=== PATIENT | female | born 1985 | race Caucasian/White ===

== ENCOUNTER 2020-08-19 12:37 | Emergency (ER) | payer SELFPAY ==
--- NOTE | 2020-08-19 13:00 | ER Document Report ---
HPI - HPI Time Seen by Provider: 08/19/20 12:52 Pain Level: 3 Notes: 35 old female who is a type II diabetic presents to the emergency room today for complaints of right shoulder pain status post fall on 08/05/2020. Reports she is unable to fully lift her arm, denies any numbness or tingling down her upper extremities. Has been taking ibuprofen and and Aleve without full relief. Denies any other area of injury. [id number]. Patient states she is unsure of her last menstrual cycle because she does have an intact IUD - MUSCULOSKELETAL Musculoskeletal: REPORTS: Extremity pain Past Medical History - General Information source: Patient - Social History Smoking Status: Current Every Day Smoker Frequency of alcohol use: Social Family History: Reviewed & Not Pertinent Vertical Provider Document - CONSTITUTIONAL Agree With Documented VS: Yes Exam Limitations: No Limitations General Appearance: WD/WN Notes: MEDICATIONS: I agree with the patient medications as charted by the RN. ALLERGIES: I agree with the allergies as charted by the RN. PAST MEDICAL HISTORY/PAST SURGICAL HISTORY: Reviewed and agree as charted by RN. SOCIAL HISTORY: Reviewed and agree as charted by RN. FAMILY HISTORY: No significant familial comorbid conditions directly related to patient complaint EXAM: Reviewed vital signs as charted by RN. PHYSICAL EXAMINATION: reviewed vital signs by RN GENERAL: Well-appearing, well-nourished and in no acute distress. HEAD: Atraumatic, normocephalic. EYES: Pupils equal round and reactive to light, extraocular movements intact, conjunctiva are normal. ENT: Nares patent, oropharynx clear without exudates. Moist mucous membranes. NECK: Normal range of motion, supple without lymphadenopathy LUNGS: Breath sounds clear to auscultation bilaterally and equal. No wheezes rales or rhonchi. HEART: Regular rate and rhythm without murmurs ABDOMEN: Soft, nontender, nondistended abdomen. No guarding, no rebound. No masses appreciated. Female : deferred Musculoskeletal: Normal range of motion, no pitting or edema. No cyanosis. Right shoulder pain with abduction and flexion. no pain with supination, pronation, extension. 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 PROM in shoulder, but not with AROM DTR +2 in BUE equally. negative drop arm, neer sign, mclain test bilaterally. positive impingement sign all on right . No vascular compromise. Neck with full APROM, no cervical spinal tenderness. No tenderness over clavicles or step off noted bilaterally. Strength 5 out of 5 in bilateral upper extremities equally. APROM of elbows bilaterally. NEUROLOGICAL: Cranial nerves grossly intact. Normal speech, normal gait. Normal sensory, motor exams PSYCH: Normal mood, normal affect. SKIN: Warm, Dry, normal turgor, no rashes or lesions noted. Course - Re-evaluation Re-evalutation: 08/19/20 13:23 Afebrile, vital stable no distress. Nurses notes reviewed. X-ray of right shoulder shows Patient placed in a sling, advised to take her arm out of the sling few times a day to prevent contracture. Advised to take naproxen as directed and can take Tylenol as well with the naproxen but advised to not take any ibuprofen or any Advil while taking naproxen. Advised to apply heat 20 minutes on 20 minutes off several times. - Vital Signs Vital signs: Temp Pulse Resp BP Pulse Ox 98.3 F 90 14 156/95 H 98 08/19/20 12:45 08/19/20 12:45 08/19/20 12:45 08/19/20 12:45 08/19/20 12:45 Discharge - Discharge Instructions: Exercise Program for the Shoulder ([facility]), Shoulder Injury ([facility]), Sling to be Used ([facility]), Temporary Sling ([facility]) Forms: Return to Work Referrals: JEREMY RANDOLPH MD [ACTIVE STAFF] - Follow up as needed FAREED WATKINS MD [ACTIVE STAFF] - Follow up as needed
--- NOTE | 2020-08-19 13:29 | RADIOLOGY REPORT (SQ) ---
EXAM DESCRIPTION: SHOULDER RIGHT 2 OR MORE VIEWS IMAGES COMPLETED DATE/TIME: 08/19/2020 1:19 pm REASON FOR STUDY: right shoulder pain s/p fall on 08/05/20 COMPARISON: None. NUMBER OF VIEWS: Three views. TECHNIQUE: Internal rotation, external rotation, and Y view images acquired of the right shoulder. LIMITATIONS: None. FINDINGS: MINERALIZATION: Normal. BONES: Cannot exclude an nondisplaced fracture of the greater tuberosity. JOINTS: No dislocation. VISUALIZED LUNGS AND RIBS: No pneumothorax. No rib fracture. SOFT TISSUES: No radiopaque foreign body. OTHER: No other significant finding. IMPRESSION: Cannot exclude a nondisplaced fracture of the greater tuberosity. TECHNICAL DOCUMENTATION: JOB ID: [id number] 2010 [employer]- All Rights Reserved Reading location - IP/workstation name: [email or web address]
--- NOTE | 2020-08-19 14:25 | ER Document Report ---
ED Medical Screen (RME) - General Chief Complaint: Shoulder Pain Stated Complaint: SHOULDER PAIN Time Seen by Provider: 08/19/20 12:52 Primary Care Provider: JEREMY RANDOLPH MD [ACTIVE STAFF] - Follow up as needed FAREED WATKINS MD [ACTIVE STAFF] - Follow up as needed - [facility] Notes: 08/19/20 14:22 35 old female who is a type II diabetic presents to the emergency room today for complaints of right shoulder pain status post fall on 08/05/2020. Reports she is unable to fully lift her arm, denies any numbness or tingling down her upper extremities. Has been taking ibuprofen and and Aleve without full relief. Denies any other area of injury. [id number]-[id number]. Denies any prior injury to her shoulder. patient states she does have an IUD I have greeted and performed a rapid initial assessment of this patient. A comprehensive ED assessment and evaluation of the patient, analysis of test results and completion of the medical decision making process will be conducted by additional ED providers. PHYSICAL EXAMINATION: GENERAL: Well-appearing, well-nourished and in no acute distress. HEAD: Atraumatic, normocephalic. CV: s1, s2 regular LUNGS: No respiratory distress Musculoskeletal: Normal range of motion. right shoulder pain with abduction and forward flexion. Able to lift right arm to 30 degrees with active range of motion, able to raise right arm to 45 degrees with passive range of motion for right shoulder. 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 APROM in shoulder. Neck with full APROM, no cervical spinal tenderness. No tenderness over clavicles or step off noted bilaterally. Strength 5 out of 5 in bilateral upper extremities equally. NEUROLOGICAL: Normal speech, normal gait. SKIN: Warm, Dry, normal turgor, no rashes or lesions noted. The patient was evaluated during a global COVID-19 pandemic and that diagnosis was suspected/considered upon their initial presentation. Their evaluation, treatment and testing was consistent with current guidelines for patients who present with complaints or symptoms and may be related to COVID-19. - Related Data Allergies/Adverse Reactions: No Known Allergies Allergy (Verified 08/19/20 12:51) Past Medical History - Social History Frequency of alcohol use: Social Physical Exam - Vital signs Vitals: Temp Pulse Resp BP Pulse Ox 98.3 F 90 14 156/95 H 98 08/19/20 12:45 08/19/20 12:45 08/19/20 12:45 08/19/20 12:45 08/19/20 12:45 Course - Vital Signs Vital signs: Temp Pulse Resp BP Pulse Ox 98.3 F 90 14 156/95 H 98 08/19/20 12:45 08/19/20 12:45 08/19/20 12:45 08/19/20 12:45 08/19/20 12:45 Doctor's Discharge - Discharge Instructions: Exercise Program for the Shoulder ([facility]), Shoulder Injury ([facility]), Sling to be Used ([facility]), Temporary Sling ([facility]) Forms: Return to Work Referrals: JEREMY RANDOLPH MD [ACTIVE STAFF] - Follow up as needed FAREED WATKINS MD [ACTIVE STAFF] - Follow up as needed
--- NOTE | 2020-08-19 14:46 | RADIOLOGY REPORT (SQ) ---
EXAM DESCRIPTION: CT RT UPPER EXTREMITY WITHOUT IMAGES COMPLETED DATE/TIME: 08/19/2020 2:26 pm REASON FOR STUDY: possible fx of COMPARISON: Radiographs performed 08/19/2020 TECHNIQUE: Axial acquisition was performed through the right shoulder. Coronal sagittal reformats a re provided. LIMITATIONS: None. FINDINGS: Suspicious findings on comparison radiographs are confirmed to be on the basis of a nondis placed comminuted fracture of the greater tubercle. Osseous mineralization and alignment is otherwis e normal. The soft tissues are normal for modality/technique. No soft tissue mass or fluid collecti on. The visualized right lung appears grossly clear. No rib fractures or pneumothorax. The remaini ng bony and soft tissue structures are unremarkable. IMPRESSION: Nondisplaced comminuted fracture of the greater tubercle of the humerus. TECHNICAL DOCUMENTATION: JOB ID: [id number] 2010 [employer]- All Rights Reserved Reading location - IP/workstation name: [email or web address]
--- NOTE | 2020-08-19 14:56 | ER Document Report ---
ED Extremity Problem, Upper - General Chief Complaint: Shoulder Pain Stated Complaint: SHOULDER PAIN Time Seen by Provider: 08/19/20 12:52 Primary Care Provider: JEREMY WAITE MD [ACTIVE STAFF] - Follow up as needed FAREED WATKINS MD [ACTIVE STAFF] - Follow up as needed Mode of Arrival: Ambulatory Information source: Patient Notes: 08/19/20 12:52 - Nursing Note by KARYN GRACE Acct Num: [id number] : 1985 Patient Age: 35 Pt arrives with a steady gait to triage. Pt states that on 08/05 she was dancing in the kitchen and slipped landing on her right side. PT reports having right shoulder pain and difficulty moving the arm since. Pt reports taking Ibuprofen and other otc medications with mild relief. PT denies any other distress. Pt denies hitting her head or and loc. PT has distal cms intact. PT is a&ox4 with e/u respirations. Initialized on 08/19/20 12:52 - END OF NOTE ED Medical Screen ([facility]t) - General Chief Complaint: Shoulder Pain Stated Complaint: SHOULDER PAIN Time Seen by Provider: 08/19/20 12:52 Primary Care Provider: JEREMY WAITE MD [ACTIVE STAFF] - Follow up as needed FAREED WATKINS MD [ACTIVE STAFF] - Follow up as needed - [facility] Notes: 08/19/20 14:22 35 old female who is a type II diabetic presents to the emergency room today for complaints of right shoulder pain status post fall on 08/05/2020. Reports she is unable to fully lift her arm, denies any numbness or tingling down her upper extremities. Has been taking ibuprofen and and Aleve without full relief. Denies any other area of injury. [id number]. Denies any prior injury to her shoulder. patient states she does have an IUD I have greeted and performed a rapid initial assessment of this patient. A comprehensive ED assessment and evaluation of the patient, analysis of test results and completion of the medical decision making process will be conducted by additional ED providers. PHYSICAL EXAMINATION: GENERAL: Well-appearing, well-nourished and in no acute distress. HEAD: Atraumatic, normocephalic. CV: s1, s2 regular LUNGS: No respiratory distress Musculoskeletal: Normal range of motion. right shoulder pain with abduction and forward flexion. Able to lift right arm to 30 degrees with active range of motion, able to raise right arm to 45 degrees with passive range of motion for right shoulder. 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 APROM in shoulder. Neck with full APROM, no cervical spinal tenderness. No tenderness over clavicles or step off noted bilaterally. Strength 5 out of 5 in bilateral upper extremities equally. NEUROLOGICAL: Normal speech, normal gait. SKIN: Warm, Dry, normal turgor, no rashes or lesions noted. MY NOTES 35-year-old female with chief complaint of right shoulder pain after dancing in her kitchen. She reports she was drunk at the time and dancing with her boyfriend. She slipped down with her right arm folded under her impacting her right shoulder into the cement floor is covered by linoleum. She also impacted her left medial knee and left medial elbow epicondyle into the caitlin. Her boyfriend reports he was a sniper retired and did not see anybody fall that hard even after he shot them. Patient had pain since this occurred. She has full range of motion however x-ray today as read by Dr. Jama cannot rule out a fracture. CT that was read by Dr. Salazar advises us that patient has a nondisplaced fracture of the greater tuberosity of the humerus. I discussed this case with the patient as well as with Dr. Vamsi Waite and he advises follow-up in his office call for appointment. He did look at the x-ray on radiology line. - Related Data Allergies/Adverse Reactions: No Known Allergies Allergy (Verified 08/19/20 12:51) Past Medical History - General Information source: Patient - Social History Smoking Status: Current Every Day Smoker Cigarette use (# per day): Yes Chew tobacco use (# tins/day): No Smoking Education Provided: Yes Frequency of alcohol use: Social Lives with: Family Family History: Reviewed & Not Pertinent Patient has suicidal ideation: No Patient has homicidal ideation: No Review of Systems - Review of Systems Constitutional: No symptoms reported EENT: No symptoms reported Cardiovascular: No symptoms reported Respiratory: No symptoms reported Gastrointestinal: No symptoms reported Genitourinary: No symptoms reported Female Genitourinary: No symptoms reported Musculoskeletal: See HPI, Joint pain, Joint swelling Skin: No symptoms reported Hematologic/Lymphatic: No symptoms reported Neurological/Psychological: No symptoms reported Physical Exam - Vital signs Vitals: Temp Pulse Resp BP Pulse Ox 98.3 F 90 14 156/95 H 98 08/19/20 12:45 08/19/20 12:45 08/19/20 12:45 08/19/20 12:45 08/19/20 12:45 Interpretation: Hypertensive - General General appearance: Appears well, Alert - HEENT Head: Normocephalic, Atraumatic Eyes: Normal Pupils: PERRL - Respiratory Respiratory status: No respiratory distress Chest status: Nontender Breath sounds: Normal Chest palpation: Normal - Cardiovascular Rhythm: Regular Heart sounds: Normal auscultation Murmur: No - Abdominal Inspection: Normal Distension: No distension Bowel sounds: Normal Tenderness: Nontender Organomegaly: No organomegaly - Rectal Hemorrhoids: Other - Deferred - Genitourinary Bimanuel exam: Other - Deferred - Back Back: Normal, Nontender - Extremities General upper extremity: Normal inspection, Tender - Tenderness on right lateral deltoid on palpation range of motion patient has pain on abduction at 40 degrees. She is unable to abduct greater than 45 degrees. Patient also has tenderness on palpation to the left medial epicondyle and to the left medial knee with no obvious ecchymosis edema, Normal color, Normal ROM, Normal temperature General lower extremity: Normal inspection, Nontender, Normal color, Normal ROM, Normal temperature, Normal weight bearing. No: Haresh's sign - Neurological Neuro grossly intact: Yes Cognition: Normal Orientation: AAOx4 Oj Coma Scale Eye Opening: Spontaneous Bethel Coma Scale Verbal: Oriented Oj Coma Scale Motor: Obeys Commands Bethel Coma Scale Total: 15 Speech: Normal Motor strength normal: LUE, RUE, LLE, RLE Sensory: Normal - Psychological Associated symptoms: Normal affect, Normal mood - Skin Skin Temperature: Warm Skin Moisture: Dry Skin Color: Normal Course - Vital Signs Vital signs: Temp Pulse Resp BP Pulse Ox 98.3 F 90 14 156/95 H 98 08/19/20 12:45 08/19/20 12:45 08/19/20 12:45 08/19/20 12:45 08/19/20 12:45 - Laboratory Results Critical Laboratory Results Reviewed: No Critical Results Attending or Supervising Physician who Reviewed Labs: AMANDEEP ROBERTSON JR - Radiology Results Critical Radiology Results Reviewed: Yes Attending or Supervising Physician who Reviewed Radiology: AMANDEEP ROBERTSON JR Discharge - Discharge Clinical Impression: Hypertension Shoulder fracture, right Qualifiers: Encounter type: initial encounter Fracture type: closed Qualified Code(s): S42.91XA - Fracture of right shoulder girdle, part unspecified, initial encounter for closed fracture Condition: Stable Disposition: HOME, SELF-CARE Instructions: Exercise Program for the Shoulder ([facility]), Shoulder Injury ([facility]), Sling to be Used ([facility]), Temporary Sling ([facility]) Additional Instructions: Follow-up with Dr. Waite orthopedics. Call his office for appointment. He has seen your x-rays already. Return to ER symptoms persist or worsen. Try to keep right shoulder immobile and avoid lifting bending or twisting for least 2 months. Try to use a sling to keep your shoulder immobile. Prescriptions: Etodolac [Lodine] 400 mg PO BID #14 tablet Forms: Return to Work Referrals: JEREMY WAITE MD [ACTIVE STAFF] - Follow up as needed FAREED WATKINS MD [ACTIVE STAFF] - Follow up as needed
[2020-08-19 16:06] VITALS: BP 148/60
== END 2020-08-19 16:07 | disposition home or self-care (01) ==
LOC: ER 12:37
DX: S42.254A Nondisplaced fracture of greater tuberosity of right humerus, initial encounter for closed fracture (principal); W01.0XXA Fall on same level from slipping, tripping and stumbling without subsequent striking against object, initial encounter; Y93.41 Activity, dancing; I10 Essential (primary) hypertension; E11.9 Type 2 diabetes mellitus without complications; F17.210 Nicotine dependence, cigarettes, uncomplicated; Z97.5 Presence of (intrauterine) contraceptive device
CPT/HCPCS: 99284